=== PATIENT | male | born 1970 | race Caucasian/White ===

== ENCOUNTER 2023-06-19 14:11 | Emergency (ER) | payer SELFPAY ==
[~2023-06-19] VITALS: Ht 170.2 cm; Wt 92.0 kg
[2023-06-19 14:18] VITALS: TEMP 97.7
[2023-06-19] MEDS: HALOPERIDOL LACTATE 5MG/ML VIAL IM ONE (17:27)
[2023-06-19 18:47] VITALS: BP 139/91; PULSE 93; RESP 12; O2SAT 99
== END 2023-06-19 18:19 ==
LOC: EDBD 14:29 → ER 14:29
DX: F10.129 Alcohol abuse with intoxication, unspecified (principal); R41.82 Altered mental status, unspecified; Y90.0 Blood alcohol level of less than 20 mg/100 ml
CPT/HCPCS: 70450; 72125; 96372; 99291; J1630; Z7610 ×2